=== PATIENT | male | born 1985 | race Caucasian/White ===

== ENCOUNTER → 2018-10-20 11:18 | Outpatient (CLI) | payer SELFPAY ==
--- NOTE | 2018-10-20 10:30 | HTC.HP4 ---
- Problem List (1) Hemophilia B Status: Chronic Subjective Date of Service:: 10/20/18 Chief Complaint: Hemophilia annual follow-up History of Present Illness: Hemophilia annual follow-up Did not use factor in the past year, uses ice packs as needed for minor injuries Did not see dentist this past year Health History: Past Medical History Past Medical History: Bleeding disorder Other Past Medical History: MEASLES WHOOPING COUGH R ANKLE FRACTURE Past Surgical History Surgical: Appendectomy Family History Paternal Past Medical History: Unknown Maternal Past Medical History: Diabetes mellitus Past Medical History (Last Updated 10/20/17 @ 10:14 by Samanta Arredondo) Ankle fracture, right (Acute) HEMOPHILIA B FACTOR IX DEFICIENCY (Acute) Measles (Acute) Whooping cough (Acute) Past Surgical History (Last Updated 10/20/17 @ 09:31 by Samanta Arredondo) History of appendectomy (Acute) Family History (Last Updated 10/20/17 @ 09:32 by Samanta Arredondo) Mother Diabetes Brother Bleeding disorder Allergies/Adverse Reactions: Allergy/AdvReac Type Severity Reaction Status Date / Time aspirin AdvReac Severe BLEEDING Verified 04/20/17 11:58 Risk Factors Social History Smoking Status Former smoker Tobacco Risk Data: Tobacco Risk Smoking Status Former smoker Type of tobacco: Smokeless tobacco usage: Items/Day: Year started: Years used: Counseled to quit/cut down: Reason for no counseling performed: Reason for no pharmacotherapy: Tobacco use comments: Passive smoke exposure: Substance Risk Drug use: Caffeine use [drinks/day]: Alcohol use: Type of alcohol: Drinks per day: Has patient felt the need to cut down: Has the patient been annoyed by complaints: Has the patient felt guilty about drinking: Has the patient needed an eye head of geography in the mornings: Comments: Review of Systems Constitutional:: Denies: Fever, Sweats, Weight loss, Appetite change, Chills Cardiovascular:: Denies: Chest pain, Palpitations, Dyspnea on exertion, Orthopnea, PND, Shortness of breath Respiratory: Denies: Cough, Hemoptysis, Shortness of Breath, Wheezing Gastrointestinal:: Denies: Abdominal pain, Nausea, Vomiting, Diarrhea, Constipation, Hematochezia Genitourinary: Denies: Dysuria, Hematuria, 15, Flank pain Musculoskeletal:: Denies: Back pain, Myalgia, Arthralgia Skin: Denies: Rash, Skin Changes, Wounds Neurological:: Denies: Headache, Dizziness, Visual changes, Tinnitus, Hearing loss Psychiatric: Denies: Anxiety, Depression, Homicidal Ideations, Suicidal Ideations - Physical Exam General: Alert, Oriented x3, No apparent distress HEENT: Atraumatic, PERRLA, EOMI, Normocephalic Oropharynx:: Dry mucosa Neck:: Supple, Trachea midline. Negative for: JVD, bilateral Cardiac:: Regular rate, Regular rhythm, Normal S1, Normal S2. Negative for: Murmur Lungs: Clear to auscultation, Excusion symmetrical. Negative for: Rhonchi, Wheezes Abdomen:: Soft, Non-tender, Non-distended. Negative for: Hepatosplenomegaly Extremities:: Negative for: Cyanosis, Edema Neurological: Neuro grossly intact Skin:: Negative for: Lesions, Rash, Petechiae, Ecchymosis Psychiatric:: Appropriate affect, Euthymic Lymphatics:: Negative for: Cervical lymphadenopathy, Supraclavicular lymphadenopathy Assessment and Plan Hemophilia annual screening visit. Reviewed: - On-demand therapy. - Appropriate oral hygiene and regular dental care is essential. - An appropriate exercise regimen encouraged for maintenance of a healthy weight, cardiovascular risk reduction, and positive effects on strength, flexibility, balance, joint stabilization, bone density, socialization, and psychological health. - Medicines that increase the risk of bleeding should be avoided namely anticoagulants, aspirin, and other nonsteroidal anti-inflammatory drugs (NSAIDs). - Herbal remedies and biei-bjm-nogykbr supplements such as fish oil, may increase bleeding risk. - Pain can be treated with local measures (eg, cold packs, immobilization, splinting), and acetaminophen. - Cardiovascular disease prevention : focus on diet, exercise, smoking avoidance, and control of hypertension and hypercholesterolemia. - Planning for invasive procedures and elective surgery. Patient was also evaluated by the Hemophilia multidisciplinary team on site and Dr Vazquez via video conferencing. Primary Care Provider: No Primary Care Phys Referring Provider: Edwardo Vazquez MD
[2018-10-20 11:32] VITALS: BP 129/88; PULSE 81; RESP 17; TEMP 36.7; O2SAT 98; BMI 29.4
--- OUTSIDE RECORDS SUMMARY | 2018-12-06 04:09 | XMS RPT_ITS ---
:1985 Author Organization [facility] Care Team Providers Name Role Phone Destiny Lopez Attending Unavailable Edwardo Vazquez Referring Unavailable Maritza Blanca Primary Care Unavailable Destiny Lopez Attending Unavailable Edwardo Vazquez Referring Unavailable Maritza Blanca Primary Care Unavailable Destiny Lopez Consulting Unavailable PROBLEMS PROBLEMS No Problem Records FoundPROCEDURES PROCEDURES No Procedure Records FoundRESULTS RESULTS HTC: OFFICE NOTE Observed: 10/20/2018 Status: F Source: [facility] 11:55 AM [facility] REPOSITORY [facility] Medical Records Department [address] [place] [address] C: Office Note 10/20/18 1030 MR#: [id number] Acct: [id number] Name: RADHA LEYVA Rep #: [id number] : 1985 33 From: Destiny Lopez MD PCP: Maritza Blanca MD Status: REG CLI Y Location: [facility] - Problem List (1) Hemophilia B Status: Chronic Subjective Date of Service:: 10/20/18 Chief Complaint: Hemophilia annual follow-up History of Present Illness: Hemophilia annual follow-up Did not use factor in the past year, uses ice packs as needed for minor injuries Did not see dentist this past year Health History: Past Medical History Past Medical History: Bleeding disorder Other Past Medical History: MEASLES WHOOPING COUGH R ANKLE FRACTURE Past Surgical History Surgical: Appendectomy Family History Paternal Past Medical History: Unknown Maternal Past Medical History: Diabetes mellitus Past Medical History (Last Updated 10/20/17 @ 10:14 by Samanta Arredondo) Ankle fracture, right (Acute) HEMOPHILIA B FACTOR IX DEFICIENCY (Acute) Measles (Acute) Whooping cough (Acute) Past Surgical History (Last Updated 10/20/17 @ 09:31 by Samanta Arredondo) History of appendectomy (Acute) Family History (Last Updated 10/20/17 @ 09:32 by Samanta Arredondo) Mother Diabetes Brother Bleeding disorder Allergies/Adverse Reactions: Allergy/AdvReac Type Severity Reaction Status Date / Time aspirin AdvReac Severe BLEEDING Verified 04/20/17 11:58 Risk Factors Social History Smoking Status Former smoker Tobacco Risk Data: Tobacco Risk Smoking Status Former smoker Type of tobacco: Smokeless tobacco usage: Items/Day: Year started: Years used: Counseled to quit/cut down: Reason for no counseling performed: Reason for no pharmacotherapy: Tobacco use comments: Passive smoke exposure: Substance Risk Drug use: Caffeine use [drinks/day]: Alcohol use: Type of alcohol: Drinks per day: Has patient felt the need to cut down: Has the patient been annoyed by complaints: Has the patient felt guilty about drinking: Has the patient needed an eye ekg manager in the mornings: Comments: Review of Systems Constitutional:: Denies: Fever, Sweats, Weight loss, Appetite change, Chills Cardiovascular:: Denies: Chest pain, Palpitations, Dyspnea on exertion, Orthopnea, PND, Shortness of breath Respiratory: Denies: Cough, Hemoptysis, Shortness of Breath, Wheezing Gastrointestinal:: Denies: Abdominal pain, Nausea, Vomiting, Diarrhea, Constipation, Hematochezia Genitourinary: Denies: Dysuria, Hematuria, 15, Flank pain Musculoskeletal:: Denies: Back pain, Myalgia, Arthralgia Skin: Denies: Rash, Skin Changes, Wounds Neurological:: Denies: Headache, Dizziness, Visual changes, Tinnitus, Hearing loss Psychiatric: Denies: Anxiety, Depression, Homicidal Ideations, Suicidal Ideations - Physical Exam General: Alert, Oriented x3, No apparent distress HEENT: Atraumatic, PERRLA, EOMI, Normocephalic Oropharynx:: Dry mucosa Neck:: Supple, Trachea midline. Negative for: JVD, bilateral Cardiac:: Regular rate, Regular rhythm, Normal S1, Normal S2. Negative for: Murmur Lungs: Clear to auscultation, Excusion symmetrical. Negative for: Rhonchi, Wheezes Abdomen:: Soft, Non-tender, Non-distended. Negative for: Hepatosplenomegaly Extremities:: Negative for: Cyanosis, Edema Neurological: Neuro grossly intact Skin:: Negative for: Lesions, Rash, Petechiae, Ecchymosis Psychiatric:: Appropriate affect, Euthymic Lymphatics:: Negative for: Cervical lymphadenopathy, Supraclavicular lymphadenopathy Assessment and Plan Hemophilia annual screening visit. Reviewed: - On-demand therapy. - Appropriate oral hygiene and regular dental care is essential. - An appropriate exercise regimen encouraged for maintenance of a healthy weight, cardiovascular risk reduction, and positive effects on strength, flexibility, balance, joint stabilization, bone density, socialization, and psychological health. - Medicines that increase the risk of bleeding should be avoided namely anticoagulants, aspirin, and other nonsteroidal anti-inflammatory drugs (NSAIDs). - Herbal remedies and jfiu-pfy-fhfyuzo supplements such as fish oil, may increase bleeding risk. - Pain can be treated with local measures (eg, cold packs, immobilization, splinting), and acetaminophen. - Cardiovascular disease prevention : focus on diet, exercise, smoking avoidance, and control of hypertension and hypercholesterolemia. - Planning for invasive procedures and elective surgery. Patient was also evaluated by the Hemophilia multidisciplinary team on site and Dr Vazquez via video conferencing. Primary Care Provider: No Primary Care Phys Referring Provider: Edwardo Vazquez MD 10/20/18 1155 <Electronically signed by Destiny Lopez MD> Date Destiny Lopez MD Cosigner Signature (if applicable): Date CC: Signed ALLERGIES ALLERGIES DATE TYPE / CODE NAME / CODE REACTION SEVERITY SOURCE 10/20/2018 Drug aspirin/F006 bleeding SV [facility] Allergy/4160 [id number]([facility] 28438(SNOMED M) Repository CT) ENCOUNTERS ENCOUNTERS ADMIT/DISCHARGE ACCOUNT ADMITTING ENCOUNTER LOCATION SOURCE NUMBER CLASS 10/20/2018 [id number] Ambulatory Challenge Challenge 5 [facility] ing:[facility] Repository 10/20/2018 [id number] Ambulatory BMSBuilding:[address] [place] Repository PAYERS PAYERS ENCOUNTER GUARANTOR PAYER SUBSCRIBER SOURCE 10/20/2018 RADHA [id number] Primary NOT GIVENUNK [place] Insurance:SELF PAY [address] [id number]: Number: Effective Repository Date:2018-07-14 () 10/20/2018 RADHA [id number] Primary NOT GIVENUNK Challenge TR Insurance:SELF PAY [address] [id number]: Number: Effective Repository Date:2018-10-20 ()
== END ==
PROVIDERS: Referring Provider Internal Medicine Hematology & Oncology; Visit Provider Internal Medicine Hematology & Oncology
DX: D67 Hereditary factor IX deficiency (principal)